=== PATIENT | female | born 1985 | race Caucasian/White ===

== ENCOUNTER → 2019-03-17 | Outpatient (CLI) | payer BC | LOC: M.MRI 11-17 11:30 | DX: Z12.39 Encounter for other screening for malignant neoplasm of breast (principal); Z80.3 Family history of malignant neoplasm of breast ==

== ENCOUNTER → 2020-10-17 | Outpatient (CLI) | payer BC | LOC: M.RAD 10-05 16:08 | PROVIDERS: ATTEND Family Medicine | DX: N64.4 Mastodynia (principal); R10.2 Pelvic and perineal pain; R92.8 Other abnormal and inconclusive findings on diagnostic imaging of breast ==